=== PATIENT | male | born 1990 | race Caucasian/White ===

== ENCOUNTER 2018-10-16 15:08 | Emergency (ER) | payer OTHER ==
[~2018-10-16] VITALS: Ht 152.4 cm; Wt 107.7 kg
[2018-10-16 15:21] VITALS: Ht 152.4 cm; Wt 107.7 kg
[2018-10-16 16:21] VITALS: BP 131/87
== END 2018-10-16 16:21 | disposition home or self-care (01) ==
LOC: ED 15:08
DX: S01.01XA Laceration without foreign body of scalp, initial encounter (principal); W20.8XXA Other cause of strike by thrown, projected or falling object, initial encounter; Y93.89 Activity, other specified; Y92.89 Other specified places as the place of occurrence of the external cause; Y99.8 Other external cause status
CPT/HCPCS: 90715; J2001